=== PATIENT | male | born 1975 | race Native Hawaiian/Other Pacific Islander ===

== ENCOUNTER 2019-03-09 09:05 | Outpatient (CLI) | payer OTHER | END 2019-03-09 23:31 | disposition home or self-care (01) | LOC: RAD 09:05 | DX: Z01.818 Encounter for other preprocedural examination (principal) ==

== ENCOUNTER 2020-02-07 08:44 | Outpatient (CLI) | payer OTHER | END 2020-02-07 22:53 | disposition home or self-care (01) | LOC: LAB 08:44 | DX: R05 Cough (principal) | CPT/HCPCS: 87635; G2023; U0002 ==